=== PATIENT | female | born 1980 | race Asian ===

== ENCOUNTER 2025-05-08 15:42 | Emergency (ER) | payer OTHER ==
[~2025-05-08] VITALS: Ht 160 cm; Wt 66.0 kg
[2025-05-08 15:45] VITALS: PULSE 130
[2025-05-08 15:46] VITALS: TEMP 37; O2SAT 98
[2025-05-08 16:16] LABS: BASOPHILS % 1.2 % (0.0-2.0); EOSINOPHILS % 0.5 % (0.0-5.0); HEMATOCRIT. 37.2 % (36.0-48.0); HEMOGLOBIN. 12.2 g/dL (12.0-16.0); LYMPHOCYTES % 21.7 % (20.0-50.0); MEAN PLATELET VOLUME 7.2 fl (7.4-10.4); MONOCYTES % 11.2 % (2.0-8.0); NEUTROPHILS % 65.4 % (40.0-76.0); PLATELET 411 x1000/uL (130-400); RED BLOOD CELL COUNT 4.59 mill/uL (4.2-5.4); RED CELL DISTRIBUTION WIDTH 16.4 % (11.6-14.6)
[2025-05-08 16:27] LABS: CREATININE 0.7 mg/dL (0.6-1.0); UREA NITROGEN BLOOD 7 mg/dL (9-23)
[2025-05-08] MEDS ORDERED: CHLO25CA11 MT (17:17)
[2025-05-08] MEDS ORDERED: AMLO10TA80 MT (17:37)
[2025-05-08] MEDS ORDERED: LISI10TA26 MT (17:37)
[2025-05-08 17:49] VITALS: BP 196/105; RESP 20; O2SAT 99
== END 2025-05-08 17:50 | disposition home or self-care (01) ==
LOC: ER 15:42
DX: F10.239 Alcohol dependence with withdrawal, unspecified (principal); F41.0 Panic disorder [episodic paroxysmal anxiety]; I10 Essential (primary) hypertension; J45.909 Unspecified asthma, uncomplicated; Z79.899 Other long term (current) drug therapy; Z91.148 Patient's other noncompliance with medication regimen for other reason; Y90.9 Presence of alcohol in blood, level not specified
CPT/HCPCS: 29125; 36415; 80048; 85025; 93005; 99283; 99284